=== PATIENT | female | born 1970 | race African-American/Black ===

== ENCOUNTER → 2019-07-24 | Day surgery (SDC) | payer OTHER ==
[~2019-07-24] MED LIST: CHOL100013 PO; FERR325T14 PO; IV RINGERS,LACTATED 1000ML 1,000 ML IV ONE; LIDOCAINE 2% PF 5 ML VIAL. ONE; PROPOFOL 80 ML IV ONE
--- NOTE | 2019-07-24 10:31 | PREOP HP ---
DATE OF SERVICE: 07/24/2019 DATE OF PROCEDURE: 07/24/2019. REQUESTING PHYSICIAN: Sheila Hernandez MD PRIMARY CARE PHYSICIAN: Sheila Hernandez MD REASON FOR PROCEDURE: History of colon polyps and dysphagia as well as Canseco's esophagus. HISTORY OF PRESENT ILLNESS: This is a 49-year-old female who presents for history of colon polyps. Her last colonoscopy in 02/11/2014 revealed multiple tubular adenomas in the sigmoid colon. She also has a history of Canseco esophagus done at the same time as well as dysphagia. ALLERGIES: No known drug allergies. MEDICATIONS: Iron supplement, vitamin D. FAMILY MEDICAL HISTORY: No colorectal cancer. REVIEW OF SYSTEMS: A 13-point review of systems was done. It is positive as per HPI and otherwise negative. PHYSICAL EXAMINATION: VITAL SIGNS: She is afebrile and her vital signs are stable. GENERAL: She is a well-developed, well-nourished -[place] female in no apparent distress. HEENT: Oropharynx is clear. CARDIOVASCULAR: S1, S2. LUNGS: Clear. ABDOMEN: Normoactive bowel sounds, soft, nontender, nondistended. EXTREMITIES: No edema. NEUROLOGIC: Awake, alert and oriented x 3. ASSESSMENT AND PLAN: 1. History of colon polyps. 2. Canseco's esophagus. 3. Dysphagia. The risks and benefits of the upper and lower endoscopy were explained and she has agreed to proceed. Thank you for allowing me to participate in the care of this patient. ALEE HENDERSON MD DR: THOMAS/vinod JOB#: [id number] / [id number]
[2019-07-24 10:34] VITALS: BP 141/65
--- NOTE | 2019-07-25 20:06 | PATHOLOGY ---
[facility] Accession Number: [id number] . 01 Material submitted: . PART A: small bowel - SMALL BOWEL BIOPSY PART B: stomach - GASTRIC ANTRUM AND BODY PART C: stomach - FUNDAL POLYP BIOPSY. Modifiers: fundus PART D: esophagus - DISTAL ESOPHAGEAL AT 35CM. Modifiers: distal PART E: esophagus - MID ESOPHAGEAL BIOPSY. Modifiers: mid PART F: rectum - RECTAL POLYP . 01 Clinical history: . Dysphagia, Hx polyps, Hx Canseco's . 02 Diagnosis: A. Small bowel biopsy: - No significant pathologic abnormalities. . B. Gastric biopsies, gastric antrum and gastric body: - Chronic gastritis, mild. . C. Gastric biopsies, fundal polyp: - Consistent with fundic gland polyp, with mild superficial chronic inflammation. . D. Esophageal biopsies, distal esophagus at 35 cm: - Segments of esophagogastric and gastric mucosa showing chronic inflammation. . E. Esophageal biopsies, middle esophagus: - Segments of mildly hyperplastic squamous esophageal mucosa identified. . F. Colorectal biopsies, rectal polyps: - Hyperplastic polyps. (JPM:rhett; 07/25/2019) [facility] [place] 07/25/2019 1141 Local . 02 Comment: Sections of the small bowel biopsy reveal segments of duodenal and small intestine mucosa. Where best oriented, the mucosal villi show no sprue-like changes or significant inflammatory changes. . Sections of the gastric antrum and body biopsy reveal segments of gastric antral and gastric body mucosa showing congestion and very mild chronic inflammation. A properly controlled immunoperoxidase stain for Helicobater is negative for Helicobacter organisms. . Sections of the fundal polyp biopsy reveal segments of gastric fundic mucosa showing a rare cystically dilated gland and mild superficial chronic inflammation, consistent with fundic gland polyp. There are no adenomatous changes or evidence of malignancy. . Sections of the distal esophageal biopsy at 35 cm reveal segments of esophagogastric and gastric mucosa consisting predominantly of gastric mucosa. There is mild to focal moderate chronic inflammation. There is no evidence of Canseco's change, dysplasia, or malignancy. . Sections of the middle esophageal biopsy reveal segments of tangentially oriented, mildly hyperplastic squamous esophageal mucosa. There is no evidence of Canseco's change, dysplasia, or malignancy. . Sections of the rectal biopsy reveal hyperplastic polyps. There are no adenomatous changes or evidence of malignancy. (JPM:rhett; 07/25/2019) . Special stain performed: Immunoperoxidase stain for Helicobacter on B1. . 02 Electronically signed: . Chandrakant Phillip MD, Pathologist NPI- [id number] . 01 Gross description: . A. Received in formalin labeled "NovoaHayderalessandro, small bowel BX," are 5 segments of kirby soft tissue measuring 1.6 x 0.9 x 0.3 cm in aggregate dimensions and ranging from 0.3 to 0.5 cm in maximum dimension. The specimen is submitted entirely in cassette A1. . B. Received in formalin labeled "NovoaHayderalessandro, gastric antrum and body BX," are 4 segments of kirby soft tissue measuring 1.0 x 1.0 x 0.3 cm in aggregate dimensions and ranging from 0.3 to 0.5 cm in maximum dimension. The specimen is submitted entirely in cassette B1. . C. Received in formalin labeled "Jaycee Novoa, fundal polyp BX," are 2 segments of kirby soft tissue measuring 0.8 x 0.3 x 0.2 cm in aggregate dimensions and ranging from 0.3 to 0.5 cm in maximum dimension. The specimen is submitted entirely in cassette C1. . D. Received in formalin labeled "NovoaJaycee, distal esophagus at 35 cm," are 5 segments of kirby soft tissue measuring 1.3 x 0.9 x 0.3 cm in aggregate dimensions and ranging from 0.4 to 0.5 cm in maximum dimension. The specimen is submitted entirely in cassette D1. . E. Received in formalin labeled "Jaycee Novoa, mid esophageal BX," are 3 segments of kirby soft tissue measuring 0.8 x 0.6 x 0.1 cm in aggregate dimensions and ranging from 0.4 to 0.5 cm in maximum dimension. The specimen is submitted entirely in cassette E1. . F. Received in formalin labeled "Jaycee Novoa, rectal polyp BX," are 3 segments of kirby soft tissue measuring 0.5 x 0.5 x 0.2 cm in aggregate dimensions and ranging from 0.3 to 0.4 cm in maximum dimension. The specimen is submitted entirely in cassette F1. (TSD; 07/24/2019) TOB/TOB 07/24/2019 2053 Local . 02 Pathologist provided ICD-10: K29.50, K31.7, K20.9, K62.1 . 02 CPT . 265095, 311965, 328962, 142444, [id number], [id number], [id number] Specimen Comment: A courtesy copy of this report has been sent to Specimen Comment: [phone], . Specimen Comment: Report sent to / DR THOMPSON Performed at: 01 [facility] [address] [id number] MD Speedy Simmons MD Phone: [phone] Performed at: 02 [facility] [address] [place], [place] [id number] MD Chandrakant Phillip MD Phone: [phone]
== END ==
LOC: SURG 08:44
PROVIDERS: ATTEND Internal Medicine Gastroenterology
DX: Z12.11 Encounter for screening for malignant neoplasm of colon (principal); K62.1 Rectal polyp; K21.0 Gastro-esophageal reflux disease with esophagitis; K29.50 Unspecified chronic gastritis without bleeding; K31.7 Polyp of stomach and duodenum; K57.30 Diverticulosis of large intestine without perforation or abscess without bleeding; K22.70 Barrett's esophagus without dysplasia; K64.0 First degree hemorrhoids; Z86.010 Personal history of colon polyps; Z98.890 Other specified postprocedural states
CPT/HCPCS: 43239; 43450; 45380; 81025; J2001; J2704